=== PATIENT | female | born 1945 | race Caucasian/White ===

== ENCOUNTER → 2017-07-05 | Outpatient (CLI) | payer MEDICARE ==
[~2017-07-05] MED LIST: DOCU-180 PO; ENAL10TA PO; TIZA4TAB PO; TRAM-47 PO
== END | disposition home or self-care (01) ==
LOC: CFH 10:33
PROVIDERS: ATTEND Nurse Practitioner
DX: Z13.820 Encounter for screening for osteoporosis (principal); M85.88 Other specified disorders of bone density and structure, other site; N95.8 Other specified menopausal and perimenopausal disorders; M81.0 Age-related osteoporosis without current pathological fracture
CPT/HCPCS: 77080

== ENCOUNTER → 2017-09-22 | Outpatient (CLI) | payer MEDICARE ==
[~2017-09-22] MED LIST changes: +ASPI-496 PO; +PRAV10TA2 PO
[2017-09-22 15:19] LABS: MICROSCOPIC NOT IND
[2017-09-22 15:21] LABS: CULTURE INDICATED? NO
[2017-09-22 15:27] LABS: BASOPHILS # (AUTO) 0.05 x10^3/uL (0-0.1); BASOPHILS % (AUTO) 1 % (0-1); EOSINOPHILS # (AUTO) 0.19 x10^3/uL (0-0.4); EOSINOPHILS % (AUTO) 2 % (1-7); LYMPHOCYTES # (AUTO) 1.89 x10^3/uL (1-3.4); LYMPHOCYTES % (AUTO) 22 % (22-44); MD NO; MEAN CORPUSCULAR HEMOGLOBIN 30.7 pg (27.0-34.8); MEAN CORPUSCULAR HGB CONC 33.2 g/dL (32.4-35.8); MEAN CORPUSCULAR VOLUME 92.4 fL (80-100); MONOCYTES # (AUTO) 0.93 x10^3/uL (0.2-0.8); MONOCYTES % (AUTO) 11 % (2-9); NEUTROPHILS # (AUTO) 5.65 x10^3/uL (1.8-6.8); NEUTROPHILS % (AUTO) 65 % (42-75); PLATELET COUNT 311 x10^3/uL (130-400); RED BLOOD COUNT 4.32 x10^6/uL (3.82-5.3); RED CELL DISTRIBUTION WIDTH 14.9 % (9.6-15.2)
[2017-09-22 15:33] LABS: ALANINE AMINOTRANSFERASE 32 U/L (12-78); ALBUMIN 3.6 g/dL (3.4-5.0); ANION GAP 6 mmol/L (5-15); CALCIUM 8.1 mg/dL (8.5-10.1); CHLORIDE 110 mmol/L (98-107); CREATININE 0.89 mg/dL (0.55-1.02)
[2017-09-22 15:36] LABS: ALKALINE PHOSPHATASE 59 U/L (45-117); BILIRUBIN,TOTAL 0.5 mg/dL (0.2-1.0); TOTAL PROTEIN 7.1 g/dL (6.4-8.2)
[2017-09-22 15:43] LABS: INTERNATIONAL NORMALIZED RATIO 0.96 (0.93-1.1)
== END | disposition home or self-care (01) ==
LOC: STAR 14:09
PROVIDERS: ATTEND Neurological Surgery
DX: Z01.818 Encounter for other preprocedural examination (principal); D32.0 Benign neoplasm of cerebral meninges
CPT/HCPCS: 36415; 71046; 80053; 81003; 85025; 85610; 85730; 93005

== ENCOUNTER 2017-09-27 05:21 | Inpatient (IN) | payer MEDICARE ==
[~2017-09-27] VITALS: Ht 160 cm; Wt 79.0 kg
[2017-09-27] MEDS ORDERED: LACTATED RINGERS 1,000 ML IV SCH (05:57)
[2017-09-27] MEDS ORDERED: BUPIVACAINE/PF-EPI 0.5% 1:200K ONE (06:25)
[2017-09-27] MEDS ORDERED: THROMBIN 20,000 UNIT VIAL TP ONE (06:25)
[2017-09-27] MEDS ORDERED: BACITRACIN 50,000 UNIT ONE (06:26)
[2017-09-27 06:28] VITALS: BP 160/82
[2017-09-27] MEDS ORDERED: ACETAMINOPHEN 500 MG TABLET PO ONE (07:30)
[2017-09-27] MEDS ORDERED: ONDANSETRON ODT 8 MG PO ONE (07:30)
[2017-09-27] MEDS ORDERED: GABAPENTIN 300 MG CAPSULE PO ONE (07:30)
[2017-09-27] MEDS ORDERED: ONDANSETRON ODT 8 MG PO PRN (09:00)
[2017-09-27] MEDS ORDERED: MIDAZOLAM 1 MG/ML, 2ML IV PRN (09:00)
[2017-09-27] MEDS ORDERED: hydrALAzine 20 MG/ML, 1ML IV PRN ×2 (09:00→15:30)
[2017-09-27] MEDS ORDERED: EPHEDRINE 50 MG/ML, 1ML IM PRN (09:00)
[2017-09-27] MEDS ORDERED: ALBUTEROL/IPRATROPIUM 2.5MG/0.5MG, 3 ML NPPB PRN (09:00)
[2017-09-27] MEDS ORDERED: MORPHINE SULFATE 4 MG/ML, 1ML IVPush PRN (09:00)
[2017-09-27] MEDS ORDERED: OXYcodone 5 MG/5 ML ORAL.SOL UDC PO PRN (09:00)
[2017-09-27] MEDS ORDERED: DIAZEPAM 5 MG/ML, 2ML IVPush PRN (09:00)
[2017-09-27] MEDS ORDERED: LABETALOL 5MG/ML, 20ML IV PRN (09:00)
[2017-09-27] MEDS ORDERED: PROMETHAZINE 25 MG/ML, 1ML IV PRN (09:00)
[2017-09-27] MEDS: FENTANYL PF 100 MCG/2ML IV PRN ×3 (12:25→13:28)
[2017-09-27] MEDS ORDERED: LABETALOL 5MG/ML, 20ML ONE (12:26)
[2017-09-27] MEDS ORDERED: hydrALAzine 20 MG/ML, 1ML ONE (12:26)
[2017-09-27] MEDS ORDERED: FENTANYL PF 100 MCG/2ML ONE (12:27)
[2017-09-27] MEDS ORDERED: CEFUROXIME 1.5 GM in SODIUM CHLORIDE 0.9% 50 ML IVPB SCH (12:30)
[2017-09-27] MEDS ORDERED: DIPHENHYDRAMINE 50 MG/ML, 1ML IV PRN (12:30)
[2017-09-27] MEDS ORDERED: ONDANSETRON 2MG/ML, 2ML IV PRN (12:30)
[2017-09-27] MEDS ORDERED: BISACODYL 10 MG SUPP PR PRN (12:30)
[2017-09-27] MEDS ORDERED: HYDROmorphone 2 MG/ML, 1ML IV PRN (12:30)
[2017-09-27] MEDS ORDERED: MAGNESIUM HYDROXIDE 8%, 30ML UDC PO PRN (12:30)
[2017-09-27] MEDS: NS + 20MEQ KCL 1,000 ML IV SCH (14:37)
[2017-09-27] MEDS: CEFAZOLIN PMX 1GM/50ML 50 ML IV SCH (16:48)
[2017-09-27] MEDS ORDERED: HYDROmorphone 2 MG/ML, 1ML ONE ×2 (16:49→19:59)
[2017-09-27] MEDS: HYDROmorphone 1 MG/ML, 1ML IV PRN ×2 (16:50→20:02)
[2017-09-27] MEDS: ACETAMINOPHEN 325 MG TABLET PO PRN (20:02)
[2017-09-27] MEDS: ENALAPRIL 10 MG TABLET PO SCH (20:03)
[2017-09-27] MEDS: PRAVASTATIN 20 MG TABLET PO SCH (20:03)
[2017-09-27] MEDS: LEVETIRACETAM 500 MG TABLET PO SCH (20:03)
[2017-09-28] MEDS: ACETAMINOPHEN 325 MG TABLET PO PRN ×5 (00:08→23:32)
[2017-09-28] MEDS ORDERED: HYDROmorphone 2 MG/ML, 1ML ONE ×4 (00:08→12:06)
[2017-09-28] MEDS: HYDROmorphone 1 MG/ML, 1ML IV PRN ×7 (00:08→21:05)
[2017-09-28] MEDS: CEFAZOLIN PMX 1GM/50ML 50 ML IV SCH (00:09)
[2017-09-28] MEDS: NS + 20MEQ KCL 1,000 ML IV SCH ×3 (00:15→23:32)
[2017-09-28 04:00] VITALS: BP 105/50
[2017-09-28 04:42] LABS: BASOPHILS # (AUTO) 0.05 x10^3/uL (0-0.1); BASOPHILS % (AUTO) 0 % (0-1); EOSINOPHILS % (AUTO) 0 % (1-7); LYMPHOCYTES # (AUTO) 1.63 x10^3/uL (1-3.4); LYMPHOCYTES % (AUTO) 14 % (22-44); MD NO; MEAN CORPUSCULAR HEMOGLOBIN 30.3 pg (27.0-34.8); MEAN CORPUSCULAR HGB CONC 32.9 g/dL (32.4-35.8); MEAN CORPUSCULAR VOLUME 92.1 fL (80-100); MEAN PLATELET VOLUME 7.2 fL (7.4-10.4); MONOCYTES # (AUTO) 1.03 x10^3/uL (0.2-0.8); MONOCYTES % (AUTO) 9 % (2-9); NEUTROPHILS # (AUTO) 9.36 x10^3/uL (1.8-6.8); NEUTROPHILS % (AUTO) 78 % (42-75); PLATELET COUNT 277 x10^3/uL (130-400); RED BLOOD COUNT 3.87 x10^6/uL (3.82-5.3)
[2017-09-28 04:51] LABS: ANION GAP 6 mmol/L (5-15); CALCIUM 7.3 mg/dL (8.5-10.1); CHLORIDE 106 mmol/L (98-107)
[2017-09-28 04:52] LABS: CREATININE 0.79 mg/dL (0.55-1.02)
[2017-09-28] MEDS: ENALAPRIL 10 MG TABLET PO SCH ×2 (08:59→21:05)
[2017-09-28] MEDS: LEVETIRACETAM 500 MG TABLET PO SCH ×2 (08:59→21:05)
[2017-09-28] MEDS: SENNA/DOCUSATE TABLET PO SCH (09:00)
[2017-09-28] MEDS ORDERED: ONDANSETRON ODT 4 MG ONE (12:12)
[2017-09-28] MEDS: TIZANIDINE 4MG TABLET PO PRN ×2 (14:18→23:33)
[2017-09-28 19:05] VITALS: BP 144/79
[2017-09-28] MEDS: PRAVASTATIN 20 MG TABLET PO SCH (21:05)
[2017-09-29] MEDS: HYDROmorphone 1 MG/ML, 1ML IV PRN ×3 (00:09→06:11)
[2017-09-29 01:40] VITALS: BP 155/78
[2017-09-29 04:48] LABS: ANION GAP 5 mmol/L (5-15); CALCIUM 7.5 mg/dL (8.5-10.1); CHLORIDE 107 mmol/L (98-107); CREATININE 0.55 mg/dL (0.55-1.02)
[2017-09-29 05:05] LABS: BASOPHILS # (AUTO) 0.05 x10^3/uL (0-0.1); BASOPHILS % (AUTO) 1 % (0-1); EOSINOPHILS # (AUTO) 0.03 x10^3/uL (0-0.4); EOSINOPHILS % (AUTO) 0 % (1-7); LYMPHOCYTES % (AUTO) 13 % (22-44); MD NO; MEAN CORPUSCULAR HEMOGLOBIN 30.7 pg (27.0-34.8); MEAN CORPUSCULAR HGB CONC 33.1 g/dL (32.4-35.8); MEAN CORPUSCULAR VOLUME 92.9 fL (80-100); MEAN PLATELET VOLUME 7.1 fL (7.4-10.4); MONOCYTES # (AUTO) 0.51 x10^3/uL (0.2-0.8); MONOCYTES % (AUTO) 5 % (2-9); NEUTROPHILS # (AUTO) 7.83 x10^3/uL (1.8-6.8); NEUTROPHILS % (AUTO) 81 % (42-75); PLATELET COUNT 242 x10^3/uL (130-400); RED BLOOD COUNT 3.58 x10^6/uL (3.82-5.3); RED CELL DISTRIBUTION WIDTH 14.4 % (9.6-15.2)
[2017-09-29 07:50] VITALS: BP 161/68
[2017-09-29] MEDS: SENNA/DOCUSATE TABLET PO SCH (07:52)
[2017-09-29] MEDS: LEVETIRACETAM 500 MG TABLET PO SCH ×2 (07:52→19:43)
[2017-09-29] MEDS: ENALAPRIL 10 MG TABLET PO SCH ×2 (07:52→19:43)
[2017-09-29] MEDS: TIZANIDINE 4MG TABLET PO PRN (07:52)
[2017-09-29] MEDS: ACETAMINOPHEN 325 MG TABLET PO PRN (07:53)
[2017-09-29] MEDS ORDERED: SCOPOLAMINE PATCH, 1.5MG PATCH.TD72 TD ONE (09:00)
[2017-09-29] MEDS: NS + 20MEQ KCL 1,000 ML IV SCH ×2 (09:28→18:31)
[2017-09-29] MEDS: HYDROmorphone 2MG TABLET PO PRN ×4 (11:12→22:13)
[2017-09-29 14:07] VITALS: BP 155/67
[2017-09-29] MEDS ORDERED: ONDANSETRON ODT 4 MG PO PRN (19:30)
[2017-09-29] MEDS: PRAVASTATIN 20 MG TABLET PO SCH (19:43)
[2017-09-29 20:30] VITALS: BP 144/78
[2017-09-30 02:58] VITALS: BP 138/77
[2017-09-30] MEDS: HYDROmorphone 2MG TABLET PO PRN ×4 (03:16→22:27)
[2017-09-30] MEDS: NS + 20MEQ KCL 1,000 ML IV SCH ×2 (04:38→13:57)
[2017-09-30 04:57] LABS: BASOPHILS # (AUTO) 0.03 x10^3/uL (0-0.1); BASOPHILS % (AUTO) 0 % (0-1); EOSINOPHILS % (AUTO) 0 % (1-7); LYMPHOCYTES # (AUTO) 0.98 x10^3/uL (1-3.4); LYMPHOCYTES % (AUTO) 10 % (22-44); MD NO; MEAN CORPUSCULAR HEMOGLOBIN 30.6 pg (27.0-34.8); MEAN CORPUSCULAR HGB CONC 33.2 g/dL (32.4-35.8); MEAN CORPUSCULAR VOLUME 92.3 fL (80-100); MEAN PLATELET VOLUME 7.4 fL (7.4-10.4); MONOCYTES # (AUTO) 0.56 x10^3/uL (0.2-0.8); MONOCYTES % (AUTO) 6 % (2-9); NEUTROPHILS # (AUTO) 8.64 x10^3/uL (1.8-6.8); NEUTROPHILS % (AUTO) 85 % (42-75); PLATELET COUNT 261 x10^3/uL (130-400); RED CELL DISTRIBUTION WIDTH 14.2 % (9.6-15.2)
[2017-09-30 05:08] LABS: ANION GAP 6 mmol/L (5-15); CALCIUM 7.8 mg/dL (8.5-10.1); CHLORIDE 104 mmol/L (98-107)
[2017-09-30 08:17] VITALS: BP 134/74
[2017-09-30] MEDS: ENALAPRIL 10 MG TABLET PO SCH ×2 (08:34→22:28)
[2017-09-30] MEDS: LEVETIRACETAM 500 MG TABLET PO SCH ×2 (08:34→22:27)
[2017-09-30] MEDS: SENNA/DOCUSATE TABLET PO SCH (08:34)
[2017-09-30 12:34] VITALS: BP 145/80
[2017-09-30 21:31] VITALS: BP 133/68
[2017-09-30] MEDS ORDERED: ENALAPRIL 5MG TABLET ONE (22:22)
[2017-09-30] MEDS: PRAVASTATIN 20 MG TABLET PO SCH (22:27)
[2017-09-30] MEDS: ACETAMINOPHEN 325 MG TABLET PO PRN (22:33)
[2017-10-01] MEDS: TIZANIDINE 4MG TABLET PO PRN (03:21)
[2017-10-01 03:27] VITALS: BP 138/80
[2017-10-01 05:23] LABS: BASOPHILS # (AUTO) 0.07 x10^3/uL (0-0.1); BASOPHILS % (AUTO) 1 % (0-1); EOSINOPHILS # (AUTO) 0.06 x10^3/uL (0-0.4); EOSINOPHILS % (AUTO) 1 % (1-7); LYMPHOCYTES # (AUTO) 1.58 x10^3/uL (1-3.4); LYMPHOCYTES % (AUTO) 19 % (22-44); MD NO; MEAN CORPUSCULAR HEMOGLOBIN 30.9 pg (27.0-34.8); MEAN CORPUSCULAR HGB CONC 33.7 g/dL (32.4-35.8); MEAN CORPUSCULAR VOLUME 91.6 fL (80-100); MEAN PLATELET VOLUME 7.5 fL (7.4-10.4); MONOCYTES # (AUTO) 0.85 x10^3/uL (0.2-0.8); MONOCYTES % (AUTO) 10 % (2-9); NEUTROPHILS % (AUTO) 70 % (42-75); PLATELET COUNT 250 x10^3/uL (130-400); RED BLOOD COUNT 3.37 x10^6/uL (3.82-5.3); RED CELL DISTRIBUTION WIDTH 14.1 % (9.6-15.2)
[2017-10-01 05:27] LABS: ANION GAP 6 mmol/L (5-15); CALCIUM 8.1 mg/dL (8.5-10.1); CHLORIDE 106 mmol/L (98-107)
[2017-10-01 05:28] LABS: CREATININE 0.61 mg/dL (0.55-1.02)
[2017-10-01] MEDS: ACETAMINOPHEN 325 MG TABLET PO PRN ×2 (06:35→11:15)
[2017-10-01] MEDS: HYDROmorphone 2MG TABLET PO PRN (06:35)
[2017-10-01 08:46] VITALS: BP 105/58
[2017-10-01] MEDS: ENALAPRIL 10 MG TABLET PO SCH (09:22)
[2017-10-01] MEDS: LEVETIRACETAM 500 MG TABLET PO SCH (09:22)
[2017-10-01] MEDS: SENNA/DOCUSATE TABLET PO SCH (09:23)
[2017-10-01] MEDS: NS + 20MEQ KCL 1,000 ML IV SCH ×2 (10:41)
[2017-10-01] MEDS ORDERED: ACET650S21 PO (11:29)
[2017-10-01 14:10] VITALS: BP 132/87
== END 2017-10-01 14:50 | disposition home health service (06) | DRG 25 ==
LOC: ORIP 05:21 → CCU 13:44 → 4NOR 09-28 12:43
PROVIDERS: ADMIT Neurological Surgery; ATTEND Neurological Surgery
PROC: 00B10ZZ Excision of Cerebral Meninges, Open Approach (ICD-10-PCS; principal; 2017-09-27 07:30)
DX: D32.0 Benign neoplasm of cerebral meninges (principal); G93.5 Compression of brain; G62.9 Polyneuropathy, unspecified; R71.0 Precipitous drop in hematocrit; I10 Essential (primary) hypertension
CPT/HCPCS: 36415; 70450; 70552; 80048; 85025; 86850; 86900; 87081; 88307; 88331; 88341; 88342; 95938; 95941; A9585; C1713; J0690; J1100; J1170; J2405; J2704; J3010; J3480; J3490; Q0162; A4648; C1768; C1781; G0461; J0360; J1200; J7120